=== PATIENT | male | born 1970 | race Caucasian/White ===

== ENCOUNTER 2016-11-05 13:11 | Emergency (ER) | payer SELFPAY ==
[2016-11-05] MEDS ORDERED: Naproxen 500 MG TAB ONE (13:37)
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
== END 2016-11-05 14:28 | disposition home or self-care (01) ==
LOC: MADERS 13:11
DX: S22.32XA Fracture of one rib, left side, initial encounter for closed fracture (principal); S20.222A Contusion of left back wall of thorax, initial encounter; M10.9 Gout, unspecified; E78.5 Hyperlipidemia, unspecified; I10 Essential (primary) hypertension; F32.9 Major depressive disorder, single episode, unspecified; F17.210 Nicotine dependence, cigarettes, uncomplicated; Z79.899 Other long term (current) drug therapy; V86.99XA Unspecified occupant of other special all-terrain or other off-road motor vehicle injured in nontraffic accident, initial encounter
CPT/HCPCS: 72072

== ENCOUNTER 2018-07-30 09:20 | Outpatient (CLI) | payer OTHER | END 2018-07-30 09:21 | disposition home or self-care (01) | LOC: MADEKG 09:20 | PROVIDERS: ATTEND Family Medicine | DX: R42 Dizziness and giddiness (principal); R53.83 Other fatigue | CPT/HCPCS: 93005; 93010 ==